=== PATIENT | female | born 1985 | race African-American/Black ===

== ENCOUNTER → 2020-09-28 10:48 | Outpatient (CLI) | payer OTHER, SELFPAY ==
--- NOTE | ~2020-09-28 | XR_ITS ---
EXAMINATION: XR chest 2V DATE: 09/28/2020 11:21 INDICATION: Shortness of breath. Chest pain. TECHNIQUE: Frontal and lateral views of the chest were obtained. COMPARISON: None. FINDINGS: The chest demonstrates clear lungs without pneumonia, pleural effusion, or pneumothorax. Th e heart size is normal. IMPRESSION: 1. No acute cardiopulmonary disease. Reviewed, dictated and finalized at location A. T [employer] DISINTEGRATOR
--- NOTE | ~2020-09-28 | US_ITS ---
EXAMINATION: US venous doppler [facility] EXAM DATE: 09/28/2020 11:13 INDICATION: shortness of breath . TECHNIQUE: Multiple grayscale, color flow and Doppler images of the left lower extremity deep venous system were obtained and reviewed. There is no prior study for comparison. FINDINGS: The left common femoral, femoral and profunda veins demonstrate normal color flow, respirat ory variation, augmentation and compressibility. Compressibility, color flow confirmed within the le ft popliteal, posterior tibial, peroneal, and greater saphenous veins. IMPRESSION: 1. No left lower extremity deep venous thrombosis. Reviewed, dictated and finalized at location A. ER
== END ==
PROVIDERS: PCP Family Medicine; Visit Provider Family Medicine
DX: R06.02 Shortness of breath (principal)
CPT/HCPCS: 71046; 93971